=== PATIENT | female | born 1970 | race Caucasian/White ===

== ENCOUNTER 2020-05-30 13:37 | Outpatient (CLI) | payer OTHER, SELFPAY ==
--- NOTE | ~2020-05-30 | CT_ITS ---
EXAMINATION: CT facial bones w con DATE: 05/30/2020 14:21 INDICATION: Right eyelid swelling. Right ethmoid sinus tenderness. TECHNIQUE: Computed tomography (CT) of the facial bones and maxillofacial region was performed with 7 5 mL Omnipaque 350 intravenous contrast. Automated exposure control and iterative reconstruction tech nique were employed. The dose-length product was 548.61 mGy-cm. COMPARISON: None. FINDINGS: There is mild right periorbital soft tissue swelling including swelling around the right na solacrimal duct. The soft tissue component of the duct is enlarged. There is mild mucosal thickening in the paranasal sinuses. The optic nerves, extraocular muscles, and ocular globes are normal. The ma stoid air cells are normal. IMPRESSION: 1. Mild right periorbital soft tissue swelling including swelling around the right nasolacrimal duct, consistent with inflammation. Enlargement of the soft tissue component of the duct suggests duct obs truction. Reviewed, dictated and finalized at location A. IMPRESSION: 1. Mild right periorbital soft tissue swelling including swelling around the ri ght nasolacrimal duct, consistent with inflammation. Enlargement of the soft ti ssue component of the duct suggests duct obstruction.
[2020-05-30 15:04] LABS: Basophils Absolute Auto 0.1 K/mm3 (0.0-0.1); Basophils Percent Auto 0.6 % (0.2-1.2); Eosinophils Absolute Auto 0.1 K/mm3 (0-0.3); Eosinophils Percent Auto 0.9 % (0-4.4); Hematocrit 44.1 % (37.0-47.0); Immature Granulocyte Absolute 0.03 K/mm3 (0.00-0.031); Immature Granulocyte Percent A 0.2 % (0-0.5); Lymphocytes Absolute Auto 2.01 K/mm3 (0.9-3.2); Lymphocytes Percent Auto 16.2 % (18.3-44.2); Mean Corpuscular Hemoglobin 29.7 pg (26-34); Mean Corpuscular Volume 87.3 fl (80-100); Mean Platelet Volume 10.1 fl (7.4-10.4); Monocytes Absolute Auto 0.7 K/mm3 (0.1-0.6); Monocytes Percent Auto 5.6 % (2.6-8.5); Neutrophils Absolute Auto 9.5 K/mm3 (1.3-6.7); Neutrophils Percent Auto 76.5 % (45.5-73.1); Platelet Count Result 310 k/mm3 (150-375); Red Blood Count 5.05 M/mm3 (4.2-5.4); Red Cell Distribution Width 12.6 % (11.5-14.5); White Blood Count 12.4 K/mm3 (4.5-10.0)
[2020-05-30 15:15] LABS: Alanine Aminotransferase 35 U/L (4-35); Albumin Level 4.6 g/dL (3.5-5.1); Alkaline Phosphatase 89 U/L (38-126); Anion Gap 15.9 mmol/L (7-16); Aspartate Amino Transferase 32 U/L (14-36); Blood Urea Nitrogen 13 mg/dL (7-17); Calcium 9.1 mg/dL (8.4-10.2); Carbon Dioxide 23 mmol/L (22-30); Chloride 102 mmol/L (98-107); Estimated Glomerular Filt Rate > 60; Glucose 107 mg/dL (65-105); Potassium 3.9 mmol/L (3.4-5.0); Sodium 137 mmol/L (137-145)
== END 2020-05-30 13:38 | disposition home or self-care (01) ==
LOC: ANHIMG 13:45
PROVIDERS: PCP Internal Medicine; Visit Provider Internal Medicine
DX: J32.9 Chronic sinusitis, unspecified (principal); H05.011 Cellulitis of right orbit; D64.9 Anemia, unspecified; Z13.1 Encounter for screening for diabetes mellitus; Z13.220 Encounter for screening for lipoid disorders
CPT/HCPCS: 36415; 70487; 80053; 85025; Q9967

== ENCOUNTER 2021-07-03 12:05 | Outpatient (CLI) | payer OTHER, SELFPAY ==
[2021-07-03 12:41] LABS: Alanine Aminotransferase 17 U/L (4-35); Albumin Level 4.3 g/dL (3.5-5.1); Alkaline Phosphatase 64 U/L (38-126); Anion Gap 7 mmol/L (8-16); Aspartate Amino Transferase 21 U/L (14-36); Bilirubin,Total 0.5 mg/dL (0.2-1.3); Blood Urea Nitrogen 14 mg/dL (7-17); Calcium 9.5 mg/dL (8.4-10.2); Carbon Dioxide 26 mmol/L (22-30); Chloride 105 mmol/L (98-107); Estimated Glomerular Filt Rate > 60; Glucose 122 mg/dL (65-110); Potassium 3.7 mmol/L (3.4-5.0); Sodium 138 mmol/L (137-145)
== END 2021-07-03 12:06 | disposition home or self-care (01) ==
LOC: ANHLAB 12:08
PROVIDERS: PCP Internal Medicine; Visit Provider Internal Medicine Cardiovascular Disease
DX: I50.32 Chronic diastolic (congestive) heart failure (principal)
CPT/HCPCS: 36415; 80053

== ENCOUNTER 2022-01-14 12:27 | Outpatient (CLI) | payer OTHER, SELFPAY ==
--- NOTE | ~2022-01-14 | CT_ITS ---
EXAMINATION: CT abdomen pelvis w con DATE: 01/14/2022 12:56 INDICATION: Low abdominal pain. TECHNIQUE: Computed tomography (CT) of the abdomen and pelvis was performed with 100 mL Omnipaque 350 intravenous contrast. Automated exposure control and iterative reconstruction technique were employe d. The dose-length product was 994.50 mGy-cm. COMPARISON: CT abdomen and pelvis 05/03/2013 FINDINGS: The visualized portions of the lung bases demonstrate mild atelectasis. No pleural effusion . The heart size is normal. No pericardial effusion. The liver, gallbladder, spleen, pancreas, adrena l glands, and kidneys are normal. There are scattered diverticula in the colon. There is fat strandin g around a sigmoid diverticulum, consistent with diverticulitis. There are no dilated loops of bowel. The appendix is normal. There are no pathologically enlarged lymph nodes. There is no free intraperi toneal fluid. There is mild lumbar spondylosis and moderate thoracic spondylosis. IMPRESSION: 1. Sigmoid diverticulitis. No perforation or abscess. Reviewed, dictated and finalized at location A.
[2022-01-14 12:51] LABS: Estimated Glomerular Filt Rate > 60
[2022-01-14 13:59] LABS: Alanine Aminotransferase 69 U/L (4-35); Alkaline Phosphatase 82 U/L (38-126); Amylase 64 U/L (30-110); Anion Gap 6 mmol/L (8-16); Aspartate Amino Transferase 39 U/L (14-36); Basophils Absolute Auto 0.1 K/mm3 (0.0-0.1); Basophils Percent Auto 0.9 % (0.2-1.2); Bilirubin,Total 0.4 mg/dL (0.2-1.3); Blood Urea Nitrogen 12 mg/dL (7-17); Carbon Dioxide 29 mmol/L (22-30); Chloride 100 mmol/L (98-107); Eosinophils Absolute Auto 0.4 K/mm3 (0-0.3); Eosinophils Percent Auto 4.4 % (0-4.4); Estimated Glomerular Filt Rate > 60; Glucose 89 mg/dL (65-110); Hematocrit 40.7 % (37.0-47.0); Hemoglobin 13.4 g/dL (12.0-15.0); Immature Granulocyte Absolute 0.04 K/mm3 (0.00-0.031); Immature Granulocyte Percent A 0.4 % (0-0.5); Lipase 76 U/L (23-300); Lymphocytes Absolute Auto 2.54 K/mm3 (0.9-3.2); Lymphocytes Percent Auto 28.5 % (18.3-44.2); Mean Corpuscular HGB Conc 32.9 g/dl (32-36); Mean Corpuscular Hemoglobin 29.8 pg (26-34); Mean Corpuscular Volume 90.6 fl (80-100); Mean Platelet Volume 10.2 fl (7.4-10.4); Monocytes Absolute Auto 0.5 K/mm3 (0.1-0.6); Monocytes Percent Auto 5.5 % (2.6-8.5); Neutrophils Absolute Auto 5.4 K/mm3 (1.3-6.7); Neutrophils Percent Auto 60.3 % (45.5-73.1); Platelet Count Result 284 k/mm3 (150-375); Potassium 3.8 mmol/L (3.4-5.0); Red Blood Count 4.49 M/mm3 (4.2-5.4); Red Cell Distribution Width 12.3 % (11.5-14.5); Sodium 135 mmol/L (137-145); White Blood Count 8.9 K/mm3 (4.5-10.0)
== END 2022-01-14 12:28 | disposition home or self-care (01) ==
PROVIDERS: PCP Internal Medicine; Visit Provider Internal Medicine
DX: R10.30 Lower abdominal pain, unspecified (principal); K57.32 Diverticulitis of large intestine without perforation or abscess without bleeding; M47.815 Spondylosis without myelopathy or radiculopathy, thoracolumbar region
CPT/HCPCS: 74177; 80053; 82150; 83690; 85025; Q9967

== ENCOUNTER 2022-02-05 12:08 | Outpatient (CLI) | payer OTHER, SELFPAY ==
[2022-02-05 12:49] LABS: Alanine Aminotransferase 25 U/L (4-35); Albumin Level 4.6 g/dL (3.5-5.1); Alkaline Phosphatase 78 U/L (38-126); Aspartate Amino Transferase 29 U/L (14-36); Bilirubin,Total 0.6 mg/dL (0.2-1.3)
== END 2022-02-05 12:09 | disposition home or self-care (01) ==
LOC: ANHLAB 12:10
PROVIDERS: PCP Internal Medicine; Visit Provider Internal Medicine
DX: R79.89 Other specified abnormal findings of blood chemistry (principal)
CPT/HCPCS: 36415; 80076

== ENCOUNTER 2022-06-11 11:08 | Day surgery (SDC) | payer OTHER, SELFPAY ==
[2022-05-12 09:47] VITALS: BMI 34.7
[2022-05-28 08:53] VITALS: BMI 33.0
[2022-06-11 11:44] VITALS: BMI 34.4
[2022-06-11 12:00] VITALS: BP 120/69; PULSE 65; RESP 14; TEMP 37; O2SAT 98
[2022-06-11] MEDS: LACTATED RINGERS 1,000 ML 150 ML IV CONT (12:16)
--- NOTE | 2022-06-11 12:18 | WPDANESEPPF ---
Anes - Initial Pre Proc Eval Procedure: Operation Date: 06/11/22 13:00 Proposed Procedures p Diagnostic Colonoscopy - Elver Dahl MD Date/Time: 06/11/22 12:18 Surgeon: Elver Dahl MD Pre Op Diagnosis: Diverticulitis Patient Data Age: 52 Gender: F Height: 1.68 m Weight: 97 kg Allergies Allergy/AdvReac Type Severity Reaction Status Date / Time MOXIFLOXACIN HCL AdvReac Severe vomitting/ Uncoded 06/11/22 11:42 very sick Home Medications Medication Instructions Recorded Confirmed Type carvedilol 3.125 mg tablet 3.125 mg PO Q12H 04/24/22 06/11/22 History cetirizine 10 mg capsule (Zyrtec) 10 mg PO DAILY PRN Allergic 04/24/22 06/11/22 History Symptoms enalapril maleate 2.5 mg tablet 2.5 mg PO BID 04/24/22 06/11/22 History famotidine 20 mg tablet 20 mg PO BID 04/24/22 06/11/22 History fluticasone furoate 27.5 1 spray intranasal DAILY 04/24/22 06/11/22 History mcg/actuation nasal spray,suspension (Flonase Sensimist) furosemide 40 mg tablet 40 mg PO QAM 04/24/22 06/11/22 History spironolactone 25 mg tablet 25 mg PO BID 04/24/22 06/11/22 History peg 3350-electrolytes 236 240 ml PO Q10M #4,000 mL 05/12/22 Rx gram-22.74 gram-6.74 gram-5.86 gram solution (Golytely) Patient hx anesthesia problems: none Family hx anesthesia problems: none Results Review: All pre-operative results and documents have been reviewed as part of the pre-operative evaluation. [facility] Past Medical History Medical History GERD (gastroesophageal reflux disease) HTN (hypertension), benign BARTOLO (obstructive sleep apnea) Restrictive cardiomyopathy Surgical History Surgical History H/O hysterectomy for benign disease Family History Family History Father Hypertension Family history of hyperthyroidism Mother Hypertension Sibling Patient's brother is in good health Asthma Social History Social History Smoking status: Never smoker Alcohol intake: never Substance use: never Substance use type: does not use Living arrangements: with family Spiritual care concerns: No Anes - Eval Final PreProcedure Day of Procedure 06/11/22 12:18 Patient weight: obese Heart: regular rate and rhythm Lungs: clear to auscultation Airway: Mallampati scale class III Neurological: alert and oriented Last oral intake: >/= 8 hours ASA classification: III Emergent: no Anesthetic plan: proceed Anesthesia type and monitoring: general GIVS and standard monitoring Results Review: All pre-operative results and documents have been reviewed as part of the pre-operative evaluation. Informed Consent: The patient's anesthetic plan and its attendant risks and benefits were discussed with the patient/family/POA. Questions were solicited and answers provided to the satisfaction of the patient/family/POA.
--- NOTE | 2022-06-11 12:59 | PM.HPGS ---
History of Present Illness History of Present Illness Consent: Risks, benefits, and alternatives have been discussed and questions answered. Patient agrees to proceed with procedure. Chief complaint: Diverticulitis Narrative: Krista Malone is a 52 year old female here for first screening colonoscopy, months ago had first episode of diverticulitis treated with oral abx, no more episodes since. Review of Systems Constitutional: Constitutional: Denies headache(s) and Denies weakness Eyes: Eyes: Denies blurry vision ENT: Reports Normal hearing present, Denies headache(s) and Denies neck pain Cardiovascular: Cardiovascular: Denies chest pain and Denies dyspnea Respiratory: Respiratory: Denies dyspnea Gastrointestinal: Gastrointestinal: Reports no additional gastrointestinal complaints Genitourinary: Genitourinary: Denies dysuria Musculoskeletal: Musculoskeletal: Denies neck pain Integumentary/Breasts: Skin/Breast: Denies dry skin Neurologic: Reports Normal hearing present, Denies headache(s) and Denies weakness Psychiatric: Psychiatric: Denies anxiety Endocrine: Endocrine: Denies change in body appearance Hematologic/Lymphatic: Hematologic/Lymphatic: Denies easy bleeding Allergic/Immunologic: Allergic/Immunologic: Denies urticaria PMFSH Past Medical History Medical History (Updated 06/11/22 @ 13:00 by Elver Dahl MD) GERD (gastroesophageal reflux disease) History of diverticulitis HTN (hypertension), benign BARTOLO (obstructive sleep apnea) Restrictive cardiomyopathy Surgical History Surgical History H/O hysterectomy for benign disease Family History Family History Father Hypertension Family history of hyperthyroidism Mother Hypertension Sibling Patient's brother is in good health Asthma Social History Social History Smoking status: Never smoker Alcohol intake: never Substance use: never Substance use type: does not use Living arrangements: with family Spiritual care concerns: No Meds Home Medications and Allergies Home Medications Medication Instructions Recorded Confirmed Type carvedilol 3.125 mg tablet 3.125 mg PO Q12H 04/24/22 06/11/22 History cetirizine 10 mg capsule (Zyrtec) 10 mg PO DAILY PRN Allergic 04/24/22 06/11/22 History Symptoms enalapril maleate 2.5 mg tablet 2.5 mg PO BID 04/24/22 06/11/22 History famotidine 20 mg tablet 20 mg PO BID 04/24/22 06/11/22 History fluticasone furoate 27.5 1 spray intranasal DAILY 04/24/22 06/11/22 History mcg/actuation nasal spray,suspension (Flonase Sensimist) furosemide 40 mg tablet 40 mg PO QAM 04/24/22 06/11/22 History spironolactone 25 mg tablet 25 mg PO BID 04/24/22 06/11/22 History peg 3350-electrolytes 236 240 ml PO Q10M #4,000 mL 05/12/22 Rx gram-22.74 gram-6.74 gram-5.86 gram solution (Golytely) Allergies Allergy/AdvReac Type Severity Reaction Status Date / Time MOXIFLOXACIN HCL AdvReac Severe vomitting/ Uncoded 06/11/22 11:42 very sick Vital Signs Vital Signs - 24 hr 06/11/22 12:00 Temperature 98.6 F Pulse Rate 65 Respiratory Rate 14 Blood Pressure 120/69 Pulse Oximetry 98 Oxygen Delivery Room Air Exam Const: General: comfortable and no acute distress HENMT: General nose exam: Normal nares present Eyes: General: appearance normal, both eyes and all related structures Neck: Neck: no JVD Resp: Auscultation: clear to auscultation bilaterally Cardio: Rate: regular rate Rhythm: regular rhythm GI: Inspection: non-distended GI Palp: Yes Soft to palpation Skin: General skin exam: normal color Neuro: General: gait normal Speech: normal speech Extrem: General: normal to inspection Psych: Mental Status: mental status grossly normal Assessment and Plan Assessm
[2022-06-11 13:21] VITALS: BP 98/45; PULSE 81; RESP 14; O2SAT 97
[2022-06-11 13:31] VITALS: BP 110/63; PULSE 73; RESP 13; O2SAT 99
[2022-06-11 13:40] VITALS: BP 106/60; PULSE 64; RESP 12; O2SAT 99
--- NOTE | 2022-06-11 14:22 | WPDANESPN ---
Anes - Prog Note Post-Op Date/Time: 06/11/22 14:22 Cardiovascular status: normal Respiratory status: normal Airway patency: baseline Mental status: baseline Post-Op hydration status: normal Vital Signs: Last Vital Signs Temp 37.0 C 06/11/22 12:00 Pulse 64 06/11/22 13:40 Resp 12 06/11/22 13:40 BP 106/60 06/11/22 13:40 Pulse Ox 99 06/11/22 13:40 O2 Del Method Room Air 06/11/22 13:40 Pain Score (VAS): 0 I/O: Intake & Output 06/10/22 06/11/22 06/11/22 23:59 07:59 15:59 Intake Total 300 Balance 300 Patient Feedback: Patient satisfied with anesthetic care.
== END 2022-06-11 13:58 | disposition home or self-care (01) ==
PROVIDERS: PCP Internal Medicine; Visit Provider Internal Medicine Gastroenterology
PROC: 0DJD8ZZ Inspection of Lower Intestinal Tract, Via Natural or Artificial Opening Endoscopic (ICD-10-PCS; CPT 45378; principal; 2022-06-11 13:00)
DX: Z12.11 Encounter for screening for malignant neoplasm of colon (principal)
CPT/HCPCS: 45378

== ENCOUNTER 2022-07-11 12:42 | Outpatient (CLI) | payer OTHER, SELFPAY ==
[2022-07-11 13:50] LABS: Alanine Aminotransferase 14 U/L (6-35); Albumin Level 4.7 g/dL (3.5-5.1); Alkaline Phosphatase 58 U/L (38-126); Anion Gap 15 mmol/L (8-16); Aspartate Amino Transferase 22 U/L (14-36); Bilirubin,Total 0.8 mg/dL (0.2-1.3); Blood Urea Nitrogen 13 mg/dL (7-17); Calcium 9.1 mg/dL (8.4-10.2); Carbon Dioxide 27 mmol/L (22-30); Chloride 98 mmol/L (98-107); Estimated Glomerular Filt Rate > 60; Glucose 99 mg/dL (65-110); Potassium 3.7 mmol/L (3.4-5.0); Sodium 140 mmol/L (137-145)
== END 2022-07-11 12:43 | disposition home or self-care (01) ==
LOC: ANHLAB 12:44
PROVIDERS: PCP Internal Medicine; Visit Provider Internal Medicine
DX: I50.32 Chronic diastolic (congestive) heart failure (principal)
CPT/HCPCS: 36415; 80053

== ENCOUNTER → 2023-06-15 11:06 | Outpatient (CLI) | payer OTHER, SELFPAY ==
--- NOTE | ~2023-06-15 | MM_ITS ---
EXAMINATION: MM screening gabbi BI w mau HISTORY: Screening TECHNIQUE: Craniocaudal and mediolateral oblique 3-D tomosynthesis images were obtained and synthetic 2-D images were generated. CAD analysis was submitted and interpreted. COMPARISON: Comparison to multiple prior studies sequentially, with oldest reviewed study dated 12/2012. BREAST PARENCHYMAL COMPOSITION: The breasts are heterogeneously dense, which may obscure small masses FINDINGS: There is no evidence of suspicious mass, calcification, or architectural distortion to sugg est malignancy in either breast. There has been no suspicious interval change. IMPRESSION: 1. No mammographic evidence of malignancy. 2. Recommend routine screening mammography in one year. BI-RADS Category 1: Negative Reviewed, dictated and finalized at location A.
== END ==
PROVIDERS: PCP Obstetrics & Gynecology; Visit Provider Obstetrics & Gynecology
DX: Z12.31 Encounter for screening mammogram for malignant neoplasm of breast (principal)
CPT/HCPCS: 77063; 77067

== ENCOUNTER 2023-07-18 11:26 | Outpatient (CLI) | payer OTHER, SELFPAY ==
[2023-07-22 11:59] LABS: FSH 7.8 mIU/mL (***)
[2023-07-25 23:37] LABS: Estradiol, Ultrasensitive 80 pg/mL
== END 2023-07-18 11:27 | disposition home or self-care (01) ==
PROVIDERS: PCP Obstetrics & Gynecology; Visit Provider Obstetrics & Gynecology
DX: N95.1 Menopausal and female climacteric states (principal)
CPT/HCPCS: 36415; 82670; 83001

== ENCOUNTER 2023-10-05 13:00 | Outpatient (CLI) | payer OTHER, SELFPAY ==
[2023-10-05 20:49] LABS: Alanine Aminotransferase 59 U/L (6-35); Albumin Level 4.4 g/dL (3.5-5.1); Alkaline Phosphatase 101 U/L (38-126); Anion Gap 11 mmol/L (8-16); Aspartate Amino Transferase 65 U/L (14-36); Bilirubin,Total 0.4 mg/dL (0.2-1.3); Blood Urea Nitrogen 16 mg/dL (7-17); Calcium 9.4 mg/dL (8.4-10.2); Carbon Dioxide 26 mmol/L (22-30); Chloride 102 mmol/L (98-107); Estimated Glomerular Filt Rate 52; Glucose 114 mg/dL (65-110); Potassium 3.7 mmol/L (3.4-5.0); Sodium 139 mmol/L (137-145)
== END 2023-10-05 13:01 | disposition home or self-care (01) ==
LOC: ANHGOSHLAB 13:02
PROVIDERS: PCP Obstetrics & Gynecology; Visit Provider Internal Medicine Cardiovascular Disease
DX: I50.32 Chronic diastolic (congestive) heart failure (principal)
CPT/HCPCS: 36415; 80053

== ENCOUNTER 2023-11-13 08:46 | Outpatient (CLI) | payer OTHER, SELFPAY ==
[2023-11-13 19:58] LABS: Anion Gap 10 mmol/L (8-16); Blood Urea Nitrogen 14 mg/dL (7-17); Calcium 9.5 mg/dL (8.4-10.2); Carbon Dioxide 29 mmol/L (22-30); Chloride 100 mmol/L (98-107); Estimated Glomerular Filt Rate > 60; Glucose 77 mg/dL (65-110); Potassium 3.8 mmol/L (3.4-5.0); Sodium 139 mmol/L (137-145)
== END 2023-11-13 08:47 | disposition home or self-care (01) ==
LOC: ANHGOSHLAB 08:50
PROVIDERS: PCP Obstetrics & Gynecology; Visit Provider Internal Medicine Cardiovascular Disease
DX: I50.30 Unspecified diastolic (congestive) heart failure (principal)
CPT/HCPCS: 36415; 80048

== ENCOUNTER 2024-12-07 13:39 | Outpatient (CLI) | payer OTHER, SELFPAY ==
--- NOTE | ~2024-12-07 | MM_ITS ---
EXAMINATION: MM screening gabbi BI w mau HISTORY: Screening TECHNIQUE: Craniocaudal and mediolateral oblique 3-D tomosynthesis images were obtained and synthetic 2-D images were generated. CAD analysis was submitted and interpreted. COMPARISON: Comparison to multiple prior studies sequentially, with oldest reviewed study dated 08/02. BREAST PARENCHYMAL COMPOSITION: Dense: The breasts are heterogeneously dense, which may obscure small masses FINDINGS: There is no evidence of suspicious mass, calcification, or architectural distortion to sugg est malignancy in either breast. There has been no suspicious interval change. IMPRESSION: 1. No mammographic evidence of malignancy. 2. Recommend routine screening mammography in one year. BI-RADS Category 1: Negative Reviewed, dictated and finalized at location B. 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
== END 2024-12-07 13:40 | disposition home or self-care (01) ==
LOC: MICIMG 13:39
PROVIDERS: PCP Obstetrics & Gynecology; Visit Provider Obstetrics & Gynecology
DX: Z12.31 Encounter for screening mammogram for malignant neoplasm of breast (principal)
CPT/HCPCS: 77063; 77067

== ENCOUNTER 2025-01-23 11:32 | Outpatient (CLI) | payer OTHER, SELFPAY ==
[2025-01-23 12:16] LABS: Alanine Aminotransferase 31 U/L (6-35); Albumin Level 4.6 g/dL (3.5-5.1); Alkaline Phosphatase 79 U/L (38-126); Anion Gap 9 mmol/L (4-12); Aspartate Amino Transferase 33 U/L (14-36); Bilirubin,Total 1.1 mg/dL (0.2-1.3); Blood Urea Nitrogen 11 mg/dL (7-17); Carbon Dioxide 28 mmol/L (22-30); Chloride 102 mmol/L (98-107); Estimated Glomerular Filt Rate > 60; Glucose 109 mg/dL (65-110); Potassium 3.9 mmol/L (3.4-5.0); Sodium 139 mmol/L (137-145)
--- OUTSIDE RECORDS SUMMARY | 2025-01-23 13:41 | XMS_ITS | Clinical Summary ---
Author Organization [facility] Address [address] [place] [address] Care Team Providers Care Log Roller Name Role Phone Manisha Anguiano MD Primary Care Provider [phone] Source Comments [facility],non-owned Affiliates and Associated Physician Practices is amultiple site organization consisting of ambulatory clinics and hospital sitesin [place], [place], [place] and [place]. This disclosure is being madepursuant to the Care Everywhere program and may not contain all information available regarding this patient. Last updated 18.[facility] Allergies Active Allergy Reactions Criticality Noted Date Comments Moxifloxacin 11/11/2016 Medications * Be aware that medications may not be up to date on this document. Alwaysverify current medications with the patient. Medication Sig Dispensed Refills Start Date End Date Status metFORMIN (GLUCOPHAGE) 500 MG tablet Take 500 mg by mouth 2 times daily with morning and evening meal Active carvedilol (COREG) 3.125 MG tablet Take 3.125 mg by mouth 2 times daily with morning and evening meal Active furosemide (LASIX) 40 MG tablet Take 40 mg by mouth once daily Active spironolactone (ALDACTONE) 25 MG tablet Take 25 mg by mouth once daily Active pantoprazole EC (PROTONIX) 40 MG tablet Take 40 mg by mouth once daily Active enalapril (VASOTEC) 2.5 MG tablet Take 2.5 mg by mouth once daily Active azithromycin (ZITHROMAX) 250 MG tabletIndications: Abnormal lung sounds Take 2 tablets now, then 1 tablet daily for 4 days. 6 Tab 11/11/2016 Active Additional Information Patient not taking.Reported on 02/16/2019 albuterol HFA (PROVENTIL HFA) 108 (90 BASE) MCG/ACT inhalerIndications :Acute URI Inhale 2 Puffs by mouth every 6 hours as needed for Wheezing or Cough 1 Inhaler 5 11/11/2016 Active RaNITidine HCl (RANITIDINE 150 MAX STRENGTH PO) Active benzonatate (TESSALON) 200 MG capsule Take 1 capsule by mouth 3 times daily as needed for Cough 30 capsule 02/18/2019 Active Immunizations Name Administration Dates Next Due INFLUENZA VACCINE, QUADR. (F LUZONE; FLULAVAL; FLUARIX; AFLURIA QUADRIVALENT; 6MO+), 0.5 ML (IIV4) 10/12/2018 Social History Tobacco Use Types Packs/Day Years Used Date Smoking Tobacco: Never Smokeless Tobacco: Never Sex and Gender Information Value Date Recorded Sex Assigned at Not on file Gender Identity Not on file Sexual Orientation Not on file Last Filed Vital Signs Vital Sign Reading Time Taken Comments Blood Pressure 120/74 02/16/2019 2:23 PM CDT Pulse 71 02/16/2019 2:23 PM CDT Temperature 37.3 C (99.2 F) 02/16/2019 2:23 PM CDT Respiratory Rate 16 02/16/2019 2:23 PM CDT Oxygen Saturation 97% 02/16/2019 2:23 PM CDT Inhaled Oxygen Concentration - - Weight 88.9 kg (196 lb) 02/16/2019 2:23 PM CDT Height 167.6 cm (5' 6 ) 02/16/2019 2:23 PM CDT Body Mass Index 31.64 02/16/2019 2:23 PM CDT Plan of Treatment Health Maintenance Due Date Last Done Comments COLOGUARD (AGES 45-75) - COL ON CA SCREENING 1972 COLON MONITORING 1972 COLONOSCOPY - COLON CA SCREENING 1972 CT COLONOGRAPHY - COLON CA SCREENING 1972 Colorectal Cancer Screening 1972 FIT - COLON CA SCREENING 1972 FLEX SIG - COLON CA SCREENING 1972 LIPID TESTING 1972 MAMMOGRAM 1972 PAP SMEAR 1972 HIV SCREENING 1987 HEPATITIS C SCREENING 05/11/1990 DTAP/TDAP/TD VACCINES (1 - Tdap) 1991 HEPATITIS B VACCINE (1 of 3 - 19+ 3-dose series) 1991 SCREENING FOR DIABETES 11/15/2018 PNEUMOCOCCAL VACCINE 50+ (1 of 1 - PCV) 2022 ZOSTER VACCINE (1 of 2) 2022 COVID-19 VACCINE (1 - 2023-2 5 season) 2024 INFLUENZA VACCINE (#1) 2024 10/12/2018 DEPRESSION SCREENING 11/02/2024 HIB VACCINE Aged Out No longer eligi ble based on patient's age to complete this topic HPV VACCINE Aged Out No longer eligi ble based on patient's age to complete this topic MENINGOCOCCAL (Group B) VACC INE SHARED DECISION-MAKING Aged Out No longer eligibl e based on patient's age to complete this topic MENINGOCOCCAL GROUPS A/C/Y/W VACCINE Aged Out No longer eligible b ased on patient's age to complete this topic PNEUMOCOCCAL VACCINE Aged Out No long er eligible based on patient's age to complete this topic Care Teams Log Roller Relationship Specialty Start Date End Date Manisha Anguiano MD [address] [facility] [address] [place] [address] PCP - General 01/21/10
--- OUTSIDE RECORDS SUMMARY | 2025-01-23 13:41 | XMS_ITS | Clinical Summary ---
Author Organization [facility] [place] [address] Address [address] [place] [address] Care Team Providers Care Waybill Clerk Name Role Phone Alicja Stroud MD Primary Care Provider [phone] Allergies Active Allergy Reactions Criticality Noted Date Comments Moxifloxacin Nausea & Vomiting Low Medications cetirizine (ZyrTEC) 10 mg tablet take 1 tablet by oral route every day as needed 0 0 6 Active famotidine (PEPCID) 20 mg tabletIndicatio ns:Heartburn,He artburn Prevention,penelope roesophageal reflux disease Take 1 tablet (20 mg total) by mouth 2 (two) times a day Active multivitamin tabletIndicatio ns:Vitamin Deficiency Prevention Take 1 tablet by mouth daily before breakfast Active potassium chloride ER 10 mEq CR tablet Take 1 tablet/capsul e (10 mEq total) by mouth daily 30 tablet 4 Active losartan (COZAAR) 25 mg tablet Take 1 tablet (25 mg total) by mouth daily 30 tablet 4 03/29/20 25 Active empagliflozin (JARDIANCE) 10 mg tablet Take 1 tablet (10 mg total) by mouth daily 30 tablet 4 Active spironolactone (ALDACTONE) 25 mg tablet Take 1 tablet by mouth twice daily 180 tablet 2 4 Active furosemide (LASIX) 40 mg tablet TAKE 1 & 1/2 (ONE AND ONE-HALF) TABLETS BY MOUTH ON TUESDAYS, , AND SATURDAYS AND 1 TABLET ON ALL OTHER DAYS. 100 tablet 1 4 Active buPROPion XL (WELLBUTRIN XL) 150 mg 24 hr tablet Take 1 tablet (150 mg total) by mouth daily Active sertraline (ZOLOFT) 50 mg tablet Take 1 tablet (50 mg total) by mouth daily 4 01/05/20 25 Discontinu ed(Therapy completed) Active Problems Problem Noted Date Diagnosed Date Retinal tear, left 09/08/2024 Assessment & Plan (01/12/2025 10:00 AM CDT): S/p laser demarcation - doing well, recommend observation. Follow up with Dr. Herrera in 1 year. Assessment & Plan (10/13/2024 10:35 AM AQUATIC LABORER): S/p laser demarcation - doing well, recommend observation Assessment & Plan (09/15/2024 12:20 PM AQUATIC LABORER): S/p LRP 09/08/24 with early laser scars. Flat today without SRF. Recommend close observation. RD return precautions discussed. Assessment & Plan (09/08/2024 11:51 AM AQUATIC LABORER): Recommend laser demarcation OS - R/B/A reviewed. Vitreous syneresis of left eye 08/22/2024 Assessment & Plan (09/08/2024 11:42 AM AQUATIC LABORER): Starting noticing flashes temporally 2 weeks ago, no RT/RD last visit seen. Today, states symptoms are relatively stable but did notice some new flashes inferiorly over last week. Denies new floaters or curtain/shadow. Exam with retina attached throughout. Has ?very small hole on depression at 12:00 but no other RT seen. Assessment & Plan (08/22/2024 11:28 AM CDT): Noted flashing lights yesterday in the left eye. Seen urgently today to rule out retinal detachment or tear. Fortunately there was no detachment or tear of the retina, recommend observation. BARTOLO (obstructive sleep apnea) 06/01/2024 Visual disturbance 04/01/2024 Assessment & Plan (12/16/2024 10:27 AM AQUATIC LABORER): Much improved with new Xavier CL; patient notes subjective improvement with opaque backing Good centration, coverage, movement OK to order back up PRN [id number] RTC 1 year with me, or PRN with concerns F/u as scheduled with Dr. Macedo Educated on LensFresh lamp cleaner, do not recommend clear care solution Assessment & Plan (09/06/2024 12:32 PM AQUATIC LABORER): Patient still notes light surrounding Xavier 7mm black out pupil, would prefer larger opaque backing Will try opaque backing w/ black out pupil Had previously tried +20.00 / -6.50 which did help but patient was still experiencing some issues RTC for disp Ref #[id number] Assessment & Plan (07/15/2024 10:21 AM CDT): Hx binocular fusion problems 2/2 retinal detachment (RD) right eye (OD) [place] 7mm Black Out Pupil - Ref# [id number] Pt still noticing diplopia/light getting in from periphery of lens in office today Advised patient to try lens at home for a couple of weeks, if still bothersome can add walnut tint outside of pupil Pt to send message in [employer]/call if symptoms persist RTC prn or for dispense if order a second lens Assessment & Plan (05/27/2024 12:35 PM CDT): Continued binocular / fusion problems 2/2 RD OD Had previously tried +20.00 / -6.50 which did help but patient was still experiencing some issues Would like to try black out pupil Will order Xavier with 7.0mm black out pupil. 14.2OAD / 8.6BC Ref# [id number] Assessment & Plan (04/01/2024 1:41 PM CDT): Patient having binocular / fusion problems 2/2 RD OD BCVA poor OD, here for occlusive CL fit today Options discussed: Occlusive black pupil Exaggerated monovison Trialed +20.00 OD / -6.50 OS in CLRx today, patient was quite happy with vision in office today Trained on I/R and compliance. Dispensed lenses OU today. Stop wearing if increased redness, lens becomes uncomfortable, decrease vision, difficulty removing. If no issues will finalize and OK to order If continued binocular issues with exaggerated mono will order black out pupil ~6.5mm with clear skirt. PRN with concerns. 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 Follow with Dr. Herrera in 1 year. Assessment & Plan (09/08/2024 11:51 AM AQUATIC LABORER): Status post multiple surgeries for retinal detachment repair in the right eye, doing well.. Assessment & Plan (08/22/2024 11:28 AM CDT): Status post multiple surgeries for retinal detachment repair in the right eye, doing well. Assessment & Plan (05/26/2024 9:45 AM CDT): Status post removal of silicone oil, off of topical steroids. Also recently s/p CEIOL OD. Recommend observation. She still notices that the images are not quite in the same location from either eye, this may be related to some macular displacement in the right eye following all of her retinal detachment repairs. But considering that she appears attached today, I think observation is the best course at this time. She is seeing Dr. Herrera for occluded CL to help with her symptoms of visual disturbance in the right eye. She has developed some epiretinal membrane temporal to the fovea in the right eye reviewing the OCT from February of 2024, it reveals the temporal epiretinal membrane and some retinal distortion however there is loss of intra-retinal lamellar so I think that additional surgery would likely be of minimal benefit. I think these retinal changes are due to her history of several retinal detachments in the right eye. Her retina exam appears stable - will see her at [facility] as needed. Assessment & Plan (02/08/2024 11:55 AM CDT): Status post removal of silicone oil, on weaning regimen for topical steroid, everything appears stable retina appears attached. Recommend observation. She still notices that the images are not quite in the same location from either eye, this may be related to some macular displacement in the right eye following all of her retinal detachment repairs. But considering that she appears attached today, I think observation is the best course at this time. Assessment & Plan (01/11/2024 10:58 AM CDT): Two weeks status post pars plana vitrectomy (PPV)/oil removal/ CEIOL to the right eye. Doing well. Small fragment of intra-ocular lens material in the anterior chamber has dissolved. Is using Pred Forte 4 times a day in the right eye. I have asked that she decrease it to 3 times a day for 2 weeks then twice a day for 2 weeks then once a day for 2 weeks then stop its use altogether. We will re-evaluate in roughly 1 month's time Signs and symptoms of retinal detachment, tears and endophthalmitis, elevated pressure reviewed with patient. Post Op Position:None. Is scheduled for YAG capsulotomy in the near future. She still notices that the images are not quite in the same location from either eye, this may be related to some macular displacement in the right eye following all of her retinal detachment repairs. But considering that she appears attached today, I think observation is the best course at this time. Assessment & Plan (12/30/2023 9:07 AM AQUATIC LABORER): One day status post pars plana vitrectomy (PPV)/oil removal/ CEIOL to the right eye. Doing well. Has small fragment of lens material in AC inferiorly, will watch for now and treat with frequent topical steroid. Shield operated eye, Tobramycin 4x/day, and Predforte q 2 hours while awake. Return to clinic in one week. Signs and symptoms of retinal detachment, tears and endophthalmitis, elevated pressure reviewed with patient. Post Op Position:None. Altitude precautions were reviewed with patient. No strenuous activity. Assessment & Plan (11/19/2023 9:01 AM AQUATIC LABORER): POM4 s/p vitrectomy, membrane peel, and insertion of 5000 centistoke silicone oil insertion. Doing well today, attached. Her cataract is now significant which is also likely limiting her vision. At this point can consider silicone oil removal and cataract extraction to the right eye - recommend combined surgery with Dr. Lorenzo. Risks, benefits and alternatives for surgery include by not limited to infection, bleeding, damage to the eye, loss of vision, loss of the eye,deformity, diplopia, increased IOP, cataract, need for new refraction, RD, RT, gas injection, post op positioning, altitude precautions, silicone oil placement, need for additional surgery, inflammation to one or both eyes, no guarantees were made, and the guarded prognosis was discussed with the patient. 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 Pt would like general anesthesia if possible. Assessment & Plan (09/17/2023 9:13 AM AQUATIC LABORER): Doing well today, attached. Currently on pred forte (PF) qdaily and will taper off by next week. Her cataract is now significant which is also likely limiting her vision. Will re-eval in 2 months and then start considering anitra oil removal. Assessment & Plan (08/10/2023 9:29 AM CDT): Feeling better, has discontinued p.o. prednisone as scheduled., continues to use topical Pred Forte recommend slowly decreasing it by a drop every 2 weeks. Otherwise doing well. Recommend observation. We will re-evaluate in roughly 6 weeks time Assessment & Plan (07/27/2023 11:25 AM CDT): Feeling better after suture removal, topical steroid, p.o. prednisone and topical tobramycin drops. Okay to stop tobramycin drops. Recommend she continue the tapering dose of p.o. prednisone and topical Pred Forte to the right eye. I have asked that she return to see us roughly 2 weeks time. Assessment & Plan (07/22/2023 8:59 AM CDT): Approximately 2 weeks following repair of recurrent retinal detachment, patient returns with pain that keeps her up at night. She has a suture related granuloma, there appears to be a loose Vicryl suture inferotemporally in the right eye, there is a Vicryl suture in the sclera superotemporally however this is covered by conjunctiva. Associated with the sutures is some inflammation. She is had this issue in the past. Offered suture removal today, we discussed the risks and benefits such as infections. She wished to proceed, will remove the suture that exposed inferotemporally. I do not think I can get to the suture that superotemporally because it is covered by conjunctiva. Instead we will start p.o. prednisone as this has helped her in the past as well. We will restart topical Tobramycin 4 times a day in the right eye, and we will re-evaluate on Thursday as scheduled. After topical anesthesia and using topical Betadine, the suture in the inferotemporal conjunctiva was removed without complication. I have asked that she continue using her Pred Forte 4 times a day in the right eye. Assessment & Plan (07/16/2023 7:39 AM CDT): 1 week status post pars plana vitrectomy (PPV)/oil exchange/membrane peeling/ endolaser (EL) to the right eye. Doing well. Stop tobramycin. Ok to continue PF QID for now for conj inflammation due to vicryl sutures burried beneath conj. No more positioning needed Return in 2 weeks Assessment & Plan (07/08/2023 8:48 AM CDT): One day status post pars plana vitrectomy (PPV)/oil exchange/membrane peeling/ endolaser (EL) to the right eye. Doing well. Shield operated eye, Tobramycin 4x/day, and Predforte 4x/day Return to clinic in one week. Signs and symptoms of retinal detachment, tears and endophthalmitis, elevated pressure reviewed with patient. Post Op Position:Face Down. Or left eye side down. . Altitude precautions were reviewed with patient. No strenuous activity. Assessment & Plan (06/25/2023 11:17 AM CDT): S/p repeated vitrectomy endolaser silicone oil injection membrane stripping to the right eye 03/10/2023. Inferotemporally there is a shallow area of residual traction with some associated subretinal fluid, this is in the far periphery adjacent to the scleral buckle. It appears essentially unchanged from her last visit on exam and by comparing to photos taken last time. We had tried to perform laser demarcation to that area but were unable to get laser around the area inf temp due to shallow RD. We had discussed options of observation versus surgery. She is interested in pursuing repeat surgery. Would require PPV/anitra oil exchange/PPL/Laser/MS vs retinectomy. Pt wishes general anesthesia Risks, benefits and alternatives for surgery include by not limited to infection, bleeding, damage to the eye, loss of vision, loss of the eye,deformity, diplopia, increased IOP, cataract, need for new refraction, RD, RT, gas injection, post op positioning, altitude precautions, silicone oil placement, need for additional surgery, inflammation to one or both eyes, no guarantees were made, and the guarded prognosis was discussed with the patient. 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 Assessment & Plan (06/03/2023 2:45 PM CDT): S/p repeated vitrectomy endolaser silicone oil injection membrane stripping to the right eye. Healing well. Without discomfort. Off of all drops. Inferotemporally there is a shallow area of residual traction with some associated subretinal fluid, this is in the far periphery adjacent to the scleral buckle. It appears essentially unchanged from her last visit, we will obtain color photographs today to continue to monitor this area. In addition have recommended laser demarcation to this area. Risks, benefits, alternatives with the patient. Patient wished to proceed. We attempted laser demarcation today. I was able to get laser uptake on the scleral buckle but I was unable to get laser around the area inf temp due to shallow RD. Disscussed options - observation vs repeat surgery. She will consider options for now. Assessment & Plan (04/08/2023 8:48 AM CDT): Approximately 4 weeks following repeated vitrectomy endolaser silicone oil injection membrane stripping to the right eye. Healing well. Without discomfort. Using Pred Forte twice a day, and we will be tapering to once a day tomorrow. Okay to use the Pred Forte once a day for we can stop it is use altogether. We will re-evaluate roughly 2 months. Assessment & Plan (03/25/2023 12:50 PM CDT): status post PPV/EL/SO/membrane peeling OD (03/10/2023) - POW2: noticed some central graininess explained by developing PSC, also some strobe light effect - different than previous photopsias, today attached, stretch hole with surrounding fibrosis noted and being monitored. Continue to taper off oral prednisone and topical PF. Continue with post op appts as scheduled Assessment & Plan (03/18/2023 9:56 AM CDT): One week status post PPV/EL/SO/membrane peeling OD (03/10/2023) to the right eye. Has been having some pain in the right eye. On examination today, the gut sutures are poking out from the conjunctiva. Offered to trim them back today. After topical anesthesia and Betadine the sutures were trimmed back to the conjunctiva. I have asked that she continue using the tobramycin drops 4 times a day for the next 4 days. I have asked that she use her topical steroid 4 times a day for a week then 3 times a day for a week then twice a day for a week then once a day for a week and then stop. She is coming off of her p.o. prednisone as well. Return to clinic in 3 weeks. Signs and symptoms of retinal detachment, tears and endophthalmitis, elevated pressure reviewed with patient. Post Op Position: Any Altitude precautions are not necessary Ok to resume normal activity level Corneal abrasion has healed. Assessment & Plan (03/11/2023 8:22 AM CDT): One day status post PPV/EL/SO/membrane peeling OD (03/10/2023) to the right eye. Doing well. Shield operated eye, Tobramycin 4x/day and Predforte 4x/day Return to clinic in one week. Signs and symptoms of retinal detachment, tears and endophthalmitis, elevated pressure reviewed with patient. Post Op Position:Face Down. Altitude precautions were reviewed with patient. No strenuous activity. Left eye felt gritty this morning, appears to be in good shape today. Without corneal abrasion. Assessment & Plan (03/05/2023 11:41 AM CDT): Patient has history of retinal detachment and had 5 repairs outside. She is two weeks status post removal of segmental scleral buckle, addition of 360 scleral buckle, PPV, MS, laser, gas to the right eye. She noticed recurrent curtain defect 2 days prior with corresponding recollecting subretinal fluid. We discussed need for surgery with placement of silicone oil. R/B/A reviewed. Risks, benefits and alternatives for surgery include by not limited to infection, bleeding, damage to the eye, loss of vision, loss of the eye,deformity, diplopia, increased IOP, cataract, need for new refraction, RD, RT, gas injection, post op positioning, altitude precautions, silicone oil placement, need for additional surgery, inflammation to one or both eyes, no guarantees were made, and the guarded prognosis was discussed with the patient. 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 Noticing increasing pain/irritaion, wants conj suture removed if possible. Nasal conj suture removed after using betadine Ok to restart PF 4-3-2-1 starting tomorrow. Assessment & Plan (02/26/2023 2:22 PM CDT): One week status post removal of segmental scleral buckle, addition of 360 scleral buckle, PPV, MS, laser, gas to the right eye. Retina appears flat and attached. She notes significant pain (6/10 baseline up to 8/10). Given she required removal/revision of prior buckle and placement of 360 encircling band, we discussed that some discomfort is normal. No signs of elevated IOP or infection. Will try short course PO prednisone. Reviewed with Dr. Gallardo via [employer] messaging, ok to start PO prednisone, will alert pt to watch for swelling in her legs. Predforte taper 4-3-2-1-0 q1w Return to clinic in one month. Signs and symptoms of retinal detachment, tears and endophthalmitis, elevated pressure reviewed with patient. Altitude precautions were reviewed with patient. Assessment & Plan (02/24/2023 9:48 AM CDT): Images from the original note were not included. - Patient is s/p removal of segmental scleral buckle, addition of 360 scleral buckle, PPV, MS, laser, gas to the right eye 02/[address] Macedo. (Has had 5 prior surgeries elsewhere due to recurrent detachment). - Worsening swelling and pain when patient woke up this morning - Overall, exam stable compared to prior. No IOP elevation, signs of infection or corneal abrasion. Plan: - Keep appointment scheduled for this week - Discussed can increased Tylenol to 1g Q6H if normal liver function and alternate with ibuprofen 400mg q6H if normal renal function - Can also try refresh ointment as needed - Can use cool compresses for comfort - Discussed return precautions Addendum: 02/24/23 at 9:46am - I called pt, pain controlled with tylenol and ibuprofen. Offered appt tomorrow, pt wishes to keep appt on - Kady Macedo Assessment & Plan (02/18/2023 8:38 AM CDT): One day status post removal of segmental scleral buckle, addition of 360 scleral buckle, PPV, MS, laser, gas to the right eye. Doing well. Shield operated eye, Tobramycin 4x/day and Predforte 4x/day Return to clinic in one week. Signs and symptoms of retinal detachment, tears and endophthalmitis, elevated pressure reviewed with patient. Post Op Position:Face Down. Or Right side down Altitude precautions were reviewed with patient. No strenuous activity. Assessment & Plan (02/05/2023 9:19 AM CDT): History of laser for retinal tear, subsequently underwent vitrectomy for floaters in the right eye. Following that procedure she is had for other surgeries for recurrent retinal detachments. In 1 of the surgery she required what looks like a segmental scleral buckle supranasally in the right eye. Today she has a recurrent retinal detachment with PVR. We discussed therapeutic options such as repeat vitrectomy surgery, adding additional scleral buckling support, membrane stripping, endolaser, silicone oil or gas injection to the right eye. Risks, benefits and alternatives for surgery include by not limited to infection, bleeding, damage to the eye, loss of vision, loss of the eye,deformity, diplopia, increased IOP, cataract, need for new refraction, RD, RT, gas injection, post op positioning, altitude precautions, silicone oil placement, need for additional surgery, inflammation to one or both eyes, no guarantees were made, and the guarded prognosis was discussed with the patient. 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 Has suture related granuloma superiorly and temporally in the right eye. Her last vitrectomy surgery was for oil removal in January 14, 2023. We discussed, removing the sutures however the temporal suture however the temporal suture may be through the conjunctiva and sclera, it may be difficult for me to tell at this time. We discussed removing the suture versus restarting topical steroid drops to soothe the inflammation. She would like to try topical drops before having the sutures removed. Age-related nuclear cataract of both eyes Assessment & Plan (02/29/2024 12:47 PM CDT): POM#2 s/p CEIOL OD Now s/p YAG OD as well Still with diplopia - monocular OD only Mac OCT without edema, but temporal fibrosis with thickening Seeing Macedo in May, on exam Patient wants occlusion of right eye, will see if Javier can fit for a black contact OD Assessment & Plan (01/28/2024 8:27 AM CDT): Here for YAG OD Continues on PF TID - on her taper Return symptoms discussed Seeing Macedo 02/07, me 02/25 - sooner for concerns Assessment & Plan (01/04/2024 12:16 PM AQUATIC LABORER): POW1 Combo Macedo/sieck Vitrectomy - 25 Gauge - Right, Removal Silicone Oil - Right, Exchange - Air/fluid - Right, and Extraction Cataract - Phacoemulsification And Lens Implant - Right C/b retained lens fragment, none seen on exam today Large PCO, plan YAG at 4 weeks Taper PF to QID Follow 1 week with [facility] D/[facility] sara Signs, symptoms of retinal detachment, tear, hole, and endophthalmitis and hypotony were reviewed and the patient is to call immediately for concerns. They can resume normal activity. We discussed that things should improve until they stabilize. Should there be any worsening of pain, vision, or redness the patient is to call. Assessment & Plan (12/21/2023 4:42 PM AQUATIC LABORER): VS cat OD 2/2 to multiple PPV/scleral buckle now with oil fill Plan SOR/CEIOL with Dr. Macedo The patient understands the risks, benefits, alternatives and wishes to proceed with cataract surgery. We discussed the target and the patient elects target NEAR (aim -6.00 to prevent aniso). We discussed toric and multifocal lens options as well as laser assisted wounds however I prefer a manual technique here. The patient understands glasses are a possibility and is comfortable proceeding with a monofocal lens. Discussed risk of bleeding, infection, need for another surgery and rarely vision loss. Flomax: no Dilation: 8mm Need for perioperative steroids: no Book Phaco/IOL/ right with PPV/SOR with retina eye. Assessment & Plan (02/05/2023 9:21 AM CDT): Appears clear enough for us to operating through today, however may require cataract surgery in the near future. Encounters Date Type Department Care Team Description 01/13/2025 Telephone [facility] Cardiology [address] [place] [address] Norberto Gallardo MD 01/12/2025 9:30 AM CDT Office Visit [facility] Ophthalmology [address] [facility] 6th [place] [address] Fiorella Macedo MD Right retinal detachment (Primary Dx); Retinal tear, left 01/04/2025 10:45 AM AQUATIC LABORER Office Visit [facility] Cardiology [address] [facility] [address] [place] [address] Norberto Gallardo MD Chronic diastolic heart failure (HCC) (Primary Dx); Peripartum cardiomyopathy; BARTOLO on CPAP 12/16/2024 10:00 AM AQUATIC LABORER Office Visit [facility] Ophthalmology [address] [facility] 6th Floor, [address] [place] [address] Jorge Herrera, YRIS Visual disturbance (Primary Dx) 11/18/2024 10:30 AM AQUATIC LABORER Office Visit [facility] Sleep Medicine at [address] [place] [address] Arlette Hughes MD BARTOLO (obstructive sleep apnea) (Primary Dx); Hypersomnia; Obesity, unspecified class, unspecified obesity type, unspecified whether serious comorbidity present; Insomnia, unspecified type 11/14/2024 Telephone [facility] Ophthalmology [address] [facility] 6th Floor, [address] [place] [address] Jorge Herrera, OD ctls appointment from Last 3 Months Surgical History Surgery Date Site/Laterality Comments LAPAROSCOPIC HYSTERECTOMY 07/03/2018 - 08/01/2018 SECTION 11/02/2011 - 11/01/2012 2012 RETINAL DETACHMENT SURGERY 10/08/2022 Right x3 RETINAL LASER PROCEDURE 11/02/2018 - 11/01/2019 Right PARS PLANA VITRECTOMY W/ SCLERAL BUCKLE 02/17/2023 Right Right scleral buckle + 25G PPV + stripping/peel membrane + endolaser + 12% C3F8 gas/fluid exchange + air/fluid exchange (Remington / Maynor) PARS PLANA VITRECTOMY W/ EMP STRIPPING 07/07/2023 Right 25G PPV + removal followed by injection of 5000 silicone oil + lensectomy + endolaser + stripping/peel membrane (Remington / Rolly) PARS PLANA VITRECTOMY 12/29/2023 Right Combo: 25G PPV + silicone oil removal + air/fliud exchane (Remington / Eva) with CEIOL OD (Sieck) PARS PLANA VITRECTOMY W/ EMP STRIPPING 03/10/2023 Right 25G PPV + endolaser + injection of silicone oil + membranectomy (Remington / Abraham) Medical History Medical History Date Comments Gastroesophageal reflux disease GERD Hx Other Medical Sinus infection s? Sleep apnea Migraines Retinal detachment OD - Follows with Dr. Macedo Nuclear sclerotic cataract of left eye PONV (postoperative nausea and vomiting) controlled with IV medication Motion sickness Pseudophakia of right eye H/O vitrectomy multiple OD Family History Medical History Relation Name Comments Hypertension Brother Brother Arthritis Father Dad Hypertension Father Dad Hypertension; Alzheimer's disease Maternal Grandfather Grandpa Pruit t Arthritis Maternal Grandfather Grandpa Hylton Cancer Maternal Grandfather Grandpa Hylton Hearing loss Maternal Grandmother Grandma Hylton Hypertension Mother Mom Hypertension; Diabetes Paternal Grandfather Grandpa Buske Anesthesia problems Neg Hx Relation Name Status Comments Brother Brother Father Dad Alive Maternal Grandfather Grandpa Hylton Maternal Grandmother Grandma Hylton Mother Mom Alive Paternal Grandfather Grandpa Buske Social History Tobacco Use Types Packs/Day Years Used Date Smoking Tobacco: Never Smokeless Tobacco: Never Tobacco Cessation:Counseling Given: Not Answered Alcohol Use Standard Drinks/Week Comments No 0 (1 standard drink = 0.6 oz pur e alcohol) AUDIT-C Answer Date Recorded Q1: How often do you have a drink containing alcohol? Never 12/07/2023 Q2: How many drinks containi ng alcohol do you have on a typical day when you are drinking? Patient does not drink Q3: How often do you have si x or more drinks on one occasion? Never 12/07/2023 Personal Safety Answer Date Recorded Have you ever been in or are you currently in a harmful physical or emotional relationship or is someone making you feel afraid or unsafe? Denies 12/29/2023 Comments No Sex and Gender Information Value Date Recorded Sex Assigned at Not on file Legal Sex Female 8:17 PM AQUATIC LABORER Gender Identity Not on file Sexual Orientation Not on file Obstetrics History Last Filed Vital Signs Vital Sign Reading Time Taken Comments Blood Pressure 110/80 01/04/2025 10:36 AM AQUATIC LABORER Pulse 75 01/04/2025 10:36 AM AQUATIC LABORER Temperature 36.1 C (97 F) 12/29/2023 1:09 PM AQUATIC LABORER Respiratory Rate 14 03/21/2024 8:36 AM CDT Oxygen Saturation 98% 01/04/2025 10:36 AM AQUATIC LABORER Inhaled Oxygen Concentration - - Weight 89.4 kg (197 lb) 01/04/2025 10:36 AM AQUATIC LABORER Height 167.6 cm (5' 6 ) 01/04/2025 10:36 AM AQUATIC LABORER Body Mass Index 31.8 01/04/2025 10:36 AM AQUATIC LABORER Plan of Treatment Health Maintenance Due Date Last Done Comments Breast Cancer Screening-Mammogram 1972 Colon Cancer Screening-Colonoscopy 1972 Depression Screening 1972 Hepatitis C Screening 1972 DTaP/Tdap/Td Vaccine (1 - Tdap) 1983 Hepatitis B Screening 1990 Regular Well Visit/Exam 18-64 1990 Pneumococcal vaccine <65 (1 of 2 - PCV) 1991 Zoster Vaccine (1 of 2) 2022 Influenza Vaccine (#1) 2024 9, 10/12/2018, 10/10/2012 Medical Devices Implanted Type Area Store Loss Prevention Manager Device Identifier Shelf Expiration Date Model / Serial / Lot [employer] Lens Iol Posterior Biconvex Optic Single Piece Envista 6.0x12.5 +16.0d Hydrophobic Acrylic [id number] - [id number] - [id number] Implanted:Qty: 1 on 12/29/2023 by Fiorella Macedo MD at [facility] Lens Right: Eye [employer] [id number] 07/02/2026 [id number] / [id number] / 0 [employer] 2.1mm 1mm 30mm Band Secure Round Sleeve Retinal Silicone 92-13 - S0 - [id number] Implanted:Qty: 1 on 02/17/2023 by Fiorella Macedo MD at [facility] Other - see comments Right: Eye [employer] 07/02/2027 92-13 / 0 / [id number] [employer] 125x2.5x.6mm Circling Band Scleral Silicone Sterile 92-02 - S0 - [id number] Implanted:Qty: 1 on 02/17/2023 by Fiorella Macedo MD at [facility] Other - see comments Right: Eye [employer] 06/01/2027 92-02 / 0 / [id number] Explanted Type Area Store Loss Prevention Manager Device Identifier Shelf Expiration Date Model / Serial / Lot [employer] Oil Ophthalmic Pc Silicone Syringe Adato Anitra Ol 5000 10ml [id number] - S0 - [id number] Implanted:Qty: 1 on 07/07/2023 by Fiorella Macedo MD at [facility] Explanted:Qty: 1 on 12/29/2023 at [facility] Other - see comments Right: Eye [employer] [id number] 01/30/2026 [id number] / [id number] / [id number] Description:CHARGED BY PHARM ACY Procedures Procedure Name Priority Date/Time Associated Diagnosis Comments POCT LIPID PANEL Routine 01/04/2025 10:3 7 AM AQUATIC LABORER Chronic diastolic heart failure (HCC) Peripartum cardiomyopathy from Last 3 Months Results * POCT lipid panel (01/04/2025 10:37 AM AQUATIC LABORER) HDL, POC 30 mg/dL Triglycerides, POC 151 mg/dL LDL Cholesterol POC 101 mg/dL Chol/HDL Ratio, POC 3.3 Non-HDL Cholesterol, POC 131 mg/dL Cholesterol Total, POC 161 mg/dL Capillary blood 01/04/2025 1 0:37 AM AQUATIC LABORER Norberto Gallardo MD POINT OF CARE TEST ORDERABLES Fi nal Result from Last 3 Months Insurance [facility] CHOICE PLUS [facility] H[facility]/PPO Address: [address] [address] [place] [address] [facility] CHOICE PLUS [facility] H[facility]/PPO Address: [address] [address] [place] [address] [facility] CHOICE PLUS [facility] HMO/PPO Address: [address] [address] [place] [address] Care Teams Waybill Clerk Relationship Specialty Start Date End Date Alicja Stroud MD [employer] [facility] [place] [address] PCP - General Internal Medicine 01/04/25
--- OUTSIDE RECORDS SUMMARY | 2025-01-23 13:41 | XMS_ITS | Referral Summary ---
Author Organization [facility] [address] [place] [address] [facility] [address] [place] [address] Care Team Providers Care Prosthetic Makeup Designer Name Role Phone Alicja Stroud MD Primary Care Provider [phone]- [phone] Encounters Date Type Department Care Team Description 01/13/2025 Telephone [facility] Cardiology [address] [facility] [address] [place] [address] Norberto Gallardo MD 01/12/2025 9:30 AM CDT Office Visit [facility] Ophthalmology [address] [address] Fiorella Macedo MD Right retinal detachment (Primary Dx); Retinal tear, left 01/04/2025 10:45 AM SWIMMING POOL CLEANER Office Visit [facility] Cardiology [address] [facility] [address] [place] [address] Norberto Gallardo MD Chronic diastolic heart failure (HCC) (Primary Dx); Peripartum cardiomyopathy; BARTOLO on CPAP 12/16/2024 10:00 AM SWIMMING POOL CLEANER Office Visit [facility] Ophthalmology [address] [facility] [address] [facility], [address] [place] [address] Jorge Herrera, YRIS Visual disturbance (Primary Dx) 11/18/2024 10:30 AM SWIMMING POOL CLEANER Office Visit [facility] Sleep Medicine at [address] [place] [address] Arlette Hughes MD BARTOLO (obstructive sleep apnea) (Primary Dx); Hypersomnia; Obesity, unspecified class, unspecified obesity type, unspecified whether serious comorbidity present; Insomnia, unspecified type 11/14/2024 Telephone [facility] Ophthalmology [address] [facility] 6th Floor, [address] [place] [address] Jorge Herrera, OD ctls appointment from Last 3 Months Allergies Active Allergy Reactions Criticality Noted Date [...] year. Assessment & Plan (10/13/2024 10:35 AM SWIMMING POOL CLEANER): S/p laser demarcation - doing well, recommend observation Assessment & Plan (09/15/2024 12:20 PM SWIMMING POOL CLEANER): S/p LRP 09/08/24 with early laser scars. Flat today without SRF. Recommend close observation. RD return precautions discussed. Assessment & Plan (09/08/2024 11:51 AM SWIMMING POOL CLEANER): Recommend laser demarcation OS - R/B/A reviewed. Vitreous syneresis of left eye 08/22/2024 Assessment & Plan (09/08/2024 11:42 AM SWIMMING POOL CLEANER): Starting noticing flashes temporally 2 weeks ago, [...] 04/01/2024 Assessment & Plan (12/16/2024 10:27 AM SWIMMING POOL CLEANER): Much improved with new Xavier CL; patient notes subjective improvement with opaque backing Good centration, coverage, movement OK to order back up PRN [id number] RTC 1 year with me, or PRN with concerns F/u as scheduled with Dr. Macedo Educated on LensFresh cleaner assistant, do not recommend clear care solution Assessment & Plan (09/06/2024 12:32 PM SWIMMING POOL CLEANER): Patient still notes light surrounding [place] 7mm black out pupil, would prefer larger opaque backing Will try opaque backing w/ black out pupil Had previously tried +20.00 / -6.50 which did help but patient was still experiencing some issues RTC for disp Ref #[id number] Assessment & Plan (07/15/2024 10:21 AM CDT): Hx binocular fusion problems 2/2 retinal detachment (RD) right eye (OD) Xavier 7mm Black Out Pupil - Ref# [id number] Pt still noticing diplopia/light getting in from periphery of lens in office today Advised patient to try lens at home for a couple of weeks, if still bothersome can add walnut tint outside of pupil Pt to send message in [employer]/call if symptoms persist RTC prn or for dispense if order a second lens Assessment & Plan (05/27/2024 12:35 PM CDT): Continued binocular / fusion problems 2/2 RD OD Had previously tried +20.00 / -6.50 which did help but patient was still experiencing some issues Would like to try black out pupil Will order Xavier with 7.0mm black out pupil. 14.2OAD / 8.6BC Ref# [id number] Assessment & Plan (04/01/2024 1:41 PM CDT): [...] year. Assessment & Plan (09/08/2024 11:51 AM SWIMMING POOL CLEANER): Status post multiple surgeries for retinal detachment [...] appears stable - will see her at [facility] as needed. Assessment & Plan (02/08/2024 11:55 [...] time. Assessment & Plan (12/30/2023 9:07 AM SWIMMING POOL CLEANER): One day status post pars plana vitrectomy [...] activity. Assessment & Plan (11/19/2023 9:01 AM SWIMMING POOL CLEANER): POM4 s/p vitrectomy, membrane peel, and insertion [...] possible. Assessment & Plan (09/17/2023 9:13 AM SWIMMING POOL CLEANER): Doing well today, attached. Currently on pred [...] PO prednisone. Reviewed with Dr. Gallardo via [employer] messaging, ok to start PO prednisone, will [...] occlusion of right eye, will see if Herrera can fit for a black contact OD Assessment & Plan (01/28/2024 8:27 AM CDT): Here for YAG OD Continues on PF TID - on her taper Return symptoms discussed Seeing Macedo 02/07, me 02/25 - sooner for concerns Assessment & Plan (01/04/2024 12:16 PM SWIMMING POOL CLEANER): POW1 Combo Macedo/sieck Vitrectomy - 25 Gauge - Right, Removal Silicone Oil - Right, Exchange - Air/fluid - Right, and Extraction Cataract - Phacoemulsification And Lens Implant - Right C/b retained lens fragment, none seen on exam today Large PCO, plan YAG at 4 weeks Taper PF to QID Follow 1 week with Macedo D/C tobra Signs, symptoms of retinal detachment, tear, hole, and endophthalmitis and hypotony were reviewed and the patient is to call immediately for concerns. They can resume normal activity. We discussed that things should improve until they stabilize. Should there be any worsening of pain, vision, or redness the patient is to call. Assessment & Plan (12/21/2023 4:42 PM SWIMMING POOL CLEANER): VS cat OD 2/2 to multiple PPV/scleral [...] require cataract surgery in the near future. Social History Tobacco Use Types Packs/Day Years [...] on file Legal Sex Female 8:17 PM SWIMMING POOL CLEANER Gender Identity Not on file Sexual Orientation Not on file Last Filed Vital Signs Vital Sign Reading Time Taken Comments Blood Pressure 110/80 01/04/2025 10:36 AM SWIMMING POOL CLEANER Pulse 75 01/04/2025 10:36 AM SWIMMING POOL CLEANER Temperature 36.1 C (97 F) 12/29/2023 1:09 PM SWIMMING POOL CLEANER Respiratory Rate 14 03/21/2024 8:36 AM CDT Oxygen Saturation 98% 01/04/2025 10:36 AM SWIMMING POOL CLEANER Inhaled Oxygen Concentration - - Weight 89.4 kg (197 lb) 01/04/2025 10:36 AM SWIMMING POOL CLEANER Height 167.6 cm (5' 6 ) 01/04/2025 10:36 AM SWIMMING POOL CLEANER Body Mass Index 31.8 01/04/2025 10:36 AM SWIMMING POOL CLEANER Plan of Treatment Not on file Medical Devices Implanted Type Area Mower Operator Device Identifier Shelf Expiration Date Model / Serial / Lot [employer] Lens Iol Posterior Biconvex Optic Single Piece Envista 6.0x12.5 +16.0d Hydrophobic Acrylic [id number] - [id number] - [id number] Implanted:Qty: 1 on 12/29/2023 by Fiorella Macedo MD at [facility] Lens Right: Eye [employer] [id number] 07/02/2026 [id number] / [id number] / 0 [employer] 2.1mm 1mm 30mm Band Secure Round Sleeve Retinal Silicone 92-13 - S0 - [id number] Implanted:Qty: 1 on 02/17/2023 by Fiorella Macedo MD at [facility] Other - see comments Right: Eye [employer] 07/02/2027 92-13 0 / [id number] [employer] 125x2.5x.6mm Circling Band Scleral Silicone Sterile 92-02 - S0 - [id number] Implanted:Qty: 1 on 02/17/2023 by Fiorella Macedo MD at [facility] Other - see comments Right: Eye [employer] 06/01/2027 92- 0 / [id number] Explanted Type Area Mower Operator Device Identifier Shelf Expiration Date Model / Serial / Lot [employer] Oil Ophthalmic Pc Silicone Syringe Adato Anitra Ol 5000 10ml [id number] - S0 - [id number] Implanted:Qty: 1 on 07/07/2023 by Fiorella Macedo MD at [facility] Explanted:Qty: 1 on 12/29/2023 at [facility] Other - see comments Right: Eye [employer] [id number] 01/30/2026 [id number] / 0 / [id number] Description:CHARGED BY PHARM ACY Procedures Procedure Name Priority Date/Time Associated Diagnosis Comments POCT LIPID PANEL Routine 01/04/2025 10:3 7 AM SWIMMING POOL CLEANER Chronic diastolic heart failure (HCC) Peripartum cardiomyopathy from Last 3 Months Results * POCT lipid panel (01/04/2025 10:37 AM SWIMMING POOL CLEANER) HDL, POC 30 mg/dL Triglycerides, POC 151 mg/dL LDL Cholesterol POC 101 mg/dL Chol/HDL Ratio, POC 3.3 Non-HDL Cholesterol, POC 131 mg/dL Cholesterol Total, POC 161 mg/dL Capillary blood 01/04/2025 1 0:37 AM SWIMMING POOL CLEANER us Norberto Gallardo MD POINT OF CARE TEST ORDERABLES Fi nal Result from Last 3 Months Insurance [facility]PPO Address: [facility] [address] [place] [address] [facility]/PPO Address: [address] [address] [place] [address] [facility] H[facility]/PPO Address: [address] [address] [place] [address] Care Teams Prosthetic Makeup Designer Relationship Specialty Start Date End Date Alicja Stroud MD [address] [employer] [place] [address] PCP - General Internal Medicine 01/04/25
== END 2025-01-23 11:33 | disposition home or self-care (01) ==
LOC: ANHLAB 11:37
PROVIDERS: PCP Internal Medicine; Visit Provider Internal Medicine Cardiovascular Disease
DX: I50.32 Chronic diastolic (congestive) heart failure (principal)
CPT/HCPCS: 36415; 80053

== ENCOUNTER 2025-10-20 11:18 | Outpatient (CLI) | payer OTHER, SELFPAY ==
--- OUTSIDE RECORDS SUMMARY | 2025-10-20 11:46 | XMS_ITS | Clinical Summary ---
Author Organization [facility] [address] Address [address] [place] [address] Care Team Providers Care Corrugated Sheet Material Sheeter Name Role Phone Alicja Stroud MD Primary Care Provider [phone]- [phone] Allergies Active Allergy Reactions Criticality Noted Date [...] tablet by mouth daily before breakfast Active spironolactone (ALDACTONE) 25 mg tablet Take 1 tablet by mouth twice daily 180 tablet 2 4 Active buPROPion XL (WELLBUTRIN XL) 150 mg 24 hr tablet Take 1 tablet (150 mg total) by mouth daily Active empagliflozin (Jardiance) 10 mg tablet Take 1 tablet by mouth once daily 90 tablet 3 5 Active losartan (COZAAR) 25 mg tablet Take 1 tablet by mouth once daily 90 tablet 3 5 Active potassium chloride ER 10 mEq CR tablet Take 1 tablet by mouth once daily 90 tablet/capsul e 3 5 Active furosemide (LASIX) 40 mg tablet TAKE 1 & 1/2 (ONE AND ONE-HALF) TABLETS BY MOUTH ON TUESDAYS, THURSDAYS, AND SATURDAYS AND 1 TABLET ON ALL OTHER DAYS. 100 tablet 2 5 Active Active Problems Problem Noted Date Diagnosed Date Retinal tear, left 09/08/2024 Assessment & Plan (01/12/2025 10:00 AM CDT): S/p laser demarcation - doing well, recommend observation. Follow up with Dr. Herrera in 1 year. Assessment & Plan (10/13/2024 10:35 AM CONSUMER LENDER): S/p laser demarcation - doing well, recommend observation Assessment & Plan (09/15/2024 12:20 PM CONSUMER LENDER): S/p LRP 09/08/24 with early laser scars. Flat today without SRF. Recommend close observation. RD return precautions discussed. Assessment & Plan (09/08/2024 11:51 AM CONSUMER LENDER): Recommend laser demarcation OS - R/B/A reviewed. Vitreous syneresis of left eye 08/22/2024 Assessment & Plan (09/08/2024 11:42 AM CONSUMER LENDER): Starting noticing flashes temporally 2 weeks ago, [...] 04/01/2024 Assessment & Plan (12/16/2024 10:27 AM CONSUMER LENDER): Much improved with new [place] CL; patient notes subjective improvement with opaque backing Good centration, coverage, movement OK to order back up PRN [id number] RTC 1 year with me, or PRN with concerns F/u as scheduled with Dr. 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) Xavier 7mm Black Out Pupil - Ref# [id number] Pt still noticing diplopia/light getting in from periphery of lens in office today Advised patient to try lens at home for a couple of weeks, if still bothersome can add walnut tint outside of pupil Pt to send message in [employer]/call if symptoms persist RTC prn or for dispense if order a second lens Assessment & Plan (05/27/2024 12:35 PM CDT): Continued binocular / fusion problems 2/2 RD OD Had previously tried +20.00 / -6.50 which did help but patient was still experiencing some issues Would like to try black out pupil Will order [place] with 7.0mm black out pupil. 14.2OAD / 8.6BC Ref# [id number] Assessment & Plan (04/01/2024 1:41 PM CDT): [...] year. Assessment & Plan (09/08/2024 11:51 AM CONSUMER LENDER): Status post multiple surgeries for retinal detachment [...] appears stable - will see her at [facility] as needed. Assessment & Plan (02/08/2024 11:55 [...] time. Assessment & Plan (12/30/2023 9:07 AM CONSUMER LENDER): One day status post pars plana vitrectomy [...] activity. Assessment & Plan (11/19/2023 9:01 AM CONSUMER LENDER): POM4 s/p vitrectomy, membrane peel, and insertion [...] possible. Assessment & Plan (09/17/2023 9:13 AM CONSUMER LENDER): Doing well today, attached. Currently on pred [...] PO prednisone. Reviewed with Dr. Gallardo via [employer] messaging, ok to start PO prednisone, will [...] on her taper Return symptoms discussed Seeing Remington 02/07, me 02/25 - sooner for concerns Assessment & Plan (01/04/2024 12:16 PM CONSUMER LENDER): POW1 Combo Macedo/sieck Vitrectomy - 25 Gauge - Right, Removal Silicone Oil - Right, Exchange - Air/fluid - Right, and Extraction Cataract - Phacoemulsification And Lens Implant - Right C/b retained lens fragment, none seen on exam today Large PCO, plan YAG at 4 weeks Taper PF to QID Follow 1 week with Remington ruiz Signs, symptoms of retinal detachment, tear, hole, and endophthalmitis and hypotony were reviewed and the patient is to call immediately for concerns. They can resume normal activity. We discussed that things should improve until they stabilize. Should there be any worsening of pain, vision, or redness the patient is to call. Assessment & Plan (12/21/2023 4:42 PM CONSUMER LENDER): VS cat OD 2/2 to multiple PPV/scleral [...] require cataract surgery in the near future. Surgical History Surgery Date Site/Laterality Comments LAPAROSCOPIC [...] exchane (Remington / Eva) with CEIOL OD (Bj) PARS PLANA VITRECTOMY W/ EMP STRIPPING 03/10/2023 [...] on file Legal Sex Female 8:17 PM CONSUMER LENDER Gender Identity Not on file Sexual Orientation Not on file Last Filed Vital Signs Vital Sign Reading Time Taken Comments Blood Pressure 110/80 01/04/2025 10:36 AM CONSUMER LENDER Pulse 75 01/04/2025 10:36 AM CONSUMER LENDER Temperature 36.1 C (97 F) 12/29/2023 1:09 PM CONSUMER LENDER Respiratory Rate 14 03/21/2024 8:36 AM CDT Oxygen Saturation 98% 01/04/2025 10:36 AM CONSUMER LENDER Inhaled Oxygen Concentration - - Weight 89.4 kg (197 lb) 01/04/2025 10:36 AM CONSUMER LENDER Height 167.6 cm (5' 6) 01/04/2025 10:36 AM CONSUMER LENDER Body Mass Index 31.8 01/04/2025 10:36 AM CONSUMER LENDER Plan of Treatment Health Maintenance Due Date Last Done Comments Breast Cancer Screening-Mammogram 1972 Colon Cancer Screening-Colonoscopy 1972 Depression Screening 1972 Hepatitis C Screening 1972 DTaP/Tdap/Td Vaccine (1 - Tdap) 1983 Hepatitis B Screening 1990 Regular Well Visit/Exam 18-64 1990 Pneumococcal vaccine <65 (1 of 2 - PCV) 1991 Zoster Vaccine (1 of 2) 2022 Influenza Vaccine (#1) 2025 9, 10/12/2018, 10/10/2012 Medical Devices Implanted Type Area Emery Grinder Device Identifier Shelf Expiration Date Model / Serial / Lot [employer] Lens Iol Posterior Biconvex Optic Single Piece Envista 6.0x12.5 +16.0d Hydrophobic Acrylic [id number] - [id number] - [id number] Implanted:Qty: 1 on 12/29/2023 by Fiorella Macedo MD at [facility] Lens Right: Eye [employer] [id number] 07/02/2026 [id number] / [id number] / 0 [employer] [place] 2.1mm 1mm 30mm Band Secure Round Sleeve Retinal Silicone 92-13 - S0 - [id number] Implanted:Qty: 1 on 02/17/2023 by Fiorella Macedo MD at [facility] Other - see comments Right: Eye [employer] [place] 07/02/2027 92-13 / 0 / [id number] [employer] [place] 125x2.5x.6mm Circling Band Scleral Silicone Sterile 92-02 - S0 - [id number] Implanted:Qty: 1 on 02/17/2023 by Fiorella Macedo MD at [facility] Other - see comments Right: Eye [employer] 06/01/2027 92-02 / 0 / [id number] Explanted Type Area Emery Grinder Device Identifier Shelf Expiration Date Model / Serial / Lot [employer] Oil Ophthalmic Pc Silicone Syringe Adato Anitra Ol 5000 10ml [id number] - S0 - [id number] Implanted:Qty: 1 on 07/07/2023 by Fiorella Macedo MD at [facility] Explanted:Qty: 1 on 12/29/2023 at [facility] Other - see comments Right: Eye [employer] [id number] 01/30/2026 [id number] / [id number] / [id number] Description:CHARGED BY PHARM [facility] Insurance [facility] Care Teams Corrugated Sheet Material Sheeter Relationship Specialty Start Date End Date Alicja Stroud MD PCP - General Internal Medicine 01/04/25
--- OUTSIDE RECORDS SUMMARY | 2025-10-20 11:46 | XMS_ITS | Encounter Summary ---
Author Organization [facility] Healthcare Address [address] [place] [address] Care Team Providers Care Sat Act Instructor Name Role Phone Shen Cerna DO Primary Care Provider [phone] Alicja Stroud MD Primary Care Provider [phone]- [phone] No, Physician Primary Care Provider [phone] Alicja Stroud MD Primary Care Provider [phone] Encounter Details Date Type Department Care Team (Late st Contact Info) Description 05/31/2018 Orders Only [facility] Information Management [address] [place] [address] Scanning, Provider Social History Tobacco Use Types Packs/Day Years Used Date Smoking Tobacco: Never Smokeless Tobacco: Never Alcohol Use Standard Drinks/Week Comments No 0 (1 standard drink = 0.6 oz pur e alcohol) Comments Unknown Sex and Gender Information Value Date Recorded Sex Assigned at Not on file Legal Sex Female 8:17 PM EC TEACHER Gender Identity Not on file Sexual Orientation Not on file documented as of this encounter Plan of Treatment Not on file documented as of this encounter Procedures Procedure Name Priority Date/Time Associated Diagnosis Comments SLEEP LAB/STUDY - RESULT 05/31/2018 documented in this encounter Results * SLEEP LAB/STUDY - RESULT (05/31/2018) Provider Scanning Final Result documented in this encounter Visit Diagnoses Not on filedocumented in this encounter Care Teams Sat Act Instructor Relationship Specialty Start Date End Date Shen Cerna DO PCP - General 02/12/12 06/21/19 Alicja Stroud MD PCP - General Internal Medicine 06/22/19 11/03/24 No, Physician PCP - General 11/04/24 01/03/25 Alicja Stroud MD PCP - General Internal Medicine 01/04/25 documented as of this encounter
--- OUTSIDE RECORDS SUMMARY | 2025-10-20 11:46 | XMS_ITS | Clinical Summary ---
Author Organization [facility] Address [address] [place] [address] Care Team Providers Care Stonecutter Hand Name Role Phone Manisha Anguiano MD Primary Care Provider [phone] Source Comments [facility],non-owned Affiliates and Associated Physician Practices is amultiple site organization consisting of ambulatory clinics and hospital sitesin [place], [place], [place] and [place]. This disclosure is being madepursuant to the Care Everywhere program and may not contain all information available regarding this patient. Last updated 18.[facility] Allergies Active Allergy Reactions Criticality Noted Date Comments Moxifloxacin 11/11/2016 Medications * Be aware that medications may not be up to date on this document. Alwaysverify current medications with the patient. metFORMIN (GLUCOPHAGE) 500 MG tablet Take 500 [...] once daily Active azithromycin (ZITHROMAX) 250 MG tabletIndicatio ns:Abnormal lung sounds Take 2 tablets now, then 1 tablet daily for 4 days. 6 Tab 7 Active Additional Information Patient not taking.Reported on 02/16/2019 albuterol HFA (PROVENTIL HFA) 108 (90 BASE) MCG/ACT inhalerIndicati ons:Acute URI Inhale 2 Puffs by mouth every 6 hours as needed for Wheezing or Cough 1 Inhaler 5 7 Active RaNITidine HCl (RANITIDINE 150 MAX STRENGTH PO) Active benzonatate (TESSALON) 200 MG capsule Take 1 capsule by mouth 3 times daily as needed for Cough 30 capsule 9 Active Immunizations Immunization Administration Dates Next Due INFLUENZA VACCINE, QUADR. (F LUZONE; FLULAVAL; FLUARIX; AFLURIA QUADRIVALENT; 6MO+), 0.5 ML (IIV4) 10/12/2018 Social History Tobacco Use Types Packs/Day Years Used Date Smoking Tobacco: Never Smokeless Tobacco: Never Comments No Sex and Gender Information Value Date Recorded Sex Assigned at Not on file Legal Sex Female 8:28 AM ANIMAL REHABILITATOR Gender Identity Not on file Sexual Orientation [...] 2:23 PM CDT Height 167.6 cm (5' 6) 02/16/2019 2:23 PM CDT Body Mass Index [...] SCREENING 1972 LIPID TESTING 1972 MAMMOGRAM 1972 HIV SCREENING 1987 HEPATITIS C SCREENING 05/11/1990 DTAP/TDAP/TD VACCINES (1 - Tdap) 1991 HEPATITIS B VACCINE (1 of 3 - 19+ 3-dose series) 1991 SCREENING FOR DIABETES 11/15/2018 PNEUMOCOCCAL VACCINE 50+ (1 of 1 - PCV) 2022 ZOSTER VACCINE (1 of 2) 2022 DEPRESSION SCREENING 11/02/2024 COVID-19 VACCINE (1 - 2024-2 6 season) 2025 INFLUENZA VACCINE (#1) 2025 10/12/2018 HIB VACCINE Aged Out No longer eligi [...] on patient's age to complete this topic Insurance [facility] Care Teams Stonecutter Hand Relationship Specialty Start Date End Date Manisha Anguiano MD [address] [facility] [address] [place] [address] PCP - General 01/21/10
--- OUTSIDE RECORDS SUMMARY | 2025-10-20 11:46 | XMS_ITS | Encounter Summary ---
Author Organization [facility] Healthcare Address [address] [place] [address] Care Team Providers Care Compensator Worker Name Role Phone Shen Cerna DO Primary Care Provider [phone]- [phone] Alicja Stroud MD Primary Care Provider [phone]- [phone] No, Physician Primary Care Provider [phone] Alicja Stroud MD Primary Care Provider [phone]- [phone] Encounter Details Date Type Department Care Team (Late st Contact Info) Description 05/11/2018 Orders Only [facility] [place] Information Management [address] [place] [address] Scanning, Provider Social History Tobacco Use Types Packs/Day Years Used Date Smoking Tobacco: Never Smokeless Tobacco: Never Alcohol Use Standard Drinks/Week Comments No 0 (1 standard drink = 0.6 oz pur e alcohol) Comments Unknown Sex and Gender Information Value Date Recorded Sex Assigned at Not on file Legal Sex Female 8:17 PM TAPE MAKER Gender Identity Not on file Sexual Orientation Not on file documented as of this encounter Plan of Treatment Not on file documented as of this encounter Procedures Procedure Name Priority Date/Time Associated Diagnosis Comments CARDIOLOGY DOCUMENT SCAN 05/11/2018 documented in this encounter Results * Cardiology Document Scan (05/11/2018) Anatomical Region Laterality Modality Other us Provider Scanning CV CARDIAC SERVICES PROCEDURES Final Result documented in this encounter Visit Diagnoses Not on filedocumented in this encounter Care Teams Compensator Worker Relationship Specialty Start Date End Date Shen Cerna DO PCP - General 02/12/12 06/21/19 Alicja Stroud MD PCP - General Internal Medicine 06/22/19 11/03/24 No, Physician PCP - General 11/04/24 01/03/25 Alicja Stroud MD PCP - General Internal Medicine 01/04/25 documented as of this encounter
[2025-10-20 13:09] LABS: Alanine Aminotransferase 21 U/L (6-35); Albumin Level 4.6 g/dL (3.5-5.1); Alkaline Phosphatase 78 U/L (38-126); Anion Gap 10 mmol/L (4-12); Aspartate Amino Transferase 55 U/L (14-36); Bilirubin,Total 0.6 mg/dL (0.2-1.3); Blood Urea Nitrogen 18 mg/dL (7-17); Calcium 9.8 mg/dL (8.4-10.2); Carbon Dioxide 29 mmol/L (22-30); Chloride 102 mmol/L (98-107); Estimated Glomerular Filt Rate 57; Glucose 102 mg/dL (65-110); Potassium 3.5 mmol/L (3.4-5.0); Sodium 141 mmol/L (137-145); Total Protein 7.8 g/dL (6.3-8.2)
[2025-10-20 13:36] LABS: Thyroid Stimulating Hormone Reflex 0.587 uIU/mL (0.465-4.68)
[2025-10-20 13:38] LABS: Hemoglobin A1C 5.1 % (<5.7)
[2025-10-23 11:08] LABS: Varicella-Zoster Ab, IgM <0.91 index (0.00-0.90)
[2025-10-24 07:08] LABS: ANA by IFA Rfx Titer/Pattern Negative (.)
== END 2025-10-20 11:19 | disposition home or self-care (01) ==
LOC: ANHGOSHLAB 11:19
PROVIDERS: PCP Nurse Practitioner Family; Visit Provider Nurse Practitioner Family
DX: R31.9 Hematuria, unspecified (principal); Z83.49 Family history of other endocrine, nutritional and metabolic diseases; I10 Essential (primary) hypertension; R35.0 Frequency of micturition; R73.01 Impaired fasting glucose
CPT/HCPCS: 36415; 80053; 83036; 84443; 86038; 86787; 87086

== ENCOUNTER 2025-10-20 11:29 | Outpatient (CLI) | payer OTHER, SELFPAY ==
--- NOTE | ~2025-10-20 | XR_ITS ---
EXAMINATION: XR foot RT min 3V, 10/20/2025 11:33 DIETETIC TECHNICIAN HISTORY: rt heel pain x 1 mo w/o injury COMPARISON: No comparisons available. Findings: No acute fracture or malalignment. No significant degenerative changes. Soft tissues unremarkable. Impression: No acute fracture or malalignment. Reviewed, dictated and finalized at location P. ETIC TECHNICIAN Impression: No acute fracture or malalignment.
== END 2025-10-20 11:30 | disposition home or self-care (01) ==
LOC: GOSHIMG 11:30
PROVIDERS: PCP Nurse Practitioner Family; Visit Provider Nurse Practitioner Family
DX: M79.671 Pain in right foot (principal)
CPT/HCPCS: 73630